=== PATIENT | male | born 1995 | race African-American/Black ===

== ENCOUNTER 2024-01-19 09:31 | Emergency (ER) | payer OTHER ==
[~2024-01-19] VITALS: Ht 170.2 cm; Wt 63.6 kg
[2024-01-19 09:31] VITALS: BP 129/83; TEMP 97.9
[2024-01-19] MEDS: KETOROLAC 30 MG/ML 1ML VIAL IM ONE (12:15)
[2024-01-19] MEDS: NAPROXEN 250 MG TAB PO ONE (12:39)
[2024-01-19] MEDS: methocarbamoL 500 MG TAB PO ONE (12:39)
[2024-01-19] MEDS ORDERED: NAPR-837 PO (13:41)
[2024-01-19] MEDS ORDERED: METH-1164 PO (13:41)
[2024-01-19 13:49] VITALS: O2SAT 98
== END 2024-01-19 13:46 | disposition home or self-care (01) ==
LOC: M ED 09:31
DX: M54.9 Dorsalgia, unspecified (principal); V43.52XA Car driver injured in collision with other type car in traffic accident, initial encounter; Y92.9 Unspecified place or not applicable; Y93.9 Activity, unspecified; Y99.9 Unspecified external cause status